=== PATIENT | female | born 1985 | race Caucasian/White ===

== ENCOUNTER 2020-07-31 09:36 | Emergency (ER) | payer BC, MEDICAID ==
[~2020-07-31 09:36] MED LIST: NO HOME MEDS
[2020-07-31 11:00] LABS: BASOPHILS % (AUTO) 0.2 % (0-1); EOSINOPHILS % (AUTO) 0.5 % (0-6); HEMATOCRIT 36.7 % (35.0-45.0); HEMOGLOBIN 12.2 g/dl (12.0-16.0); LYMPHOCYTES # (AUTO) 1.4 X10'3 (1.1-4.8); LYMPHOCYTES % (AUTO) 14.8 % (21-51); MEAN CORPUSCULAR HEMOGLOBIN 31.5 PG (27.0-31.0); MEAN CORPUSCULAR HGB CONC 33.3 g/dL (33.0-36.5); MEAN CORPUSCULAR VOLUME 94.6 FL (78-98); MEAN PLATELET VOLUME 9.1 FL (7.4-10.4); MONOCYTES # (AUTO) 0.7 X10'3 (0-0.9); MONOCYTES % (AUTO) 7.7 % (2-12); NEUTROPHILS # (AUTO) 7.5 X10'3 (1.8-7.7); NEUTROPHILS % (AUTO) 76.8 % (42-75); PLATELET COUNT 192 X10'3 (140-440); RED BLOOD COUNT 3.88 X10'6 (4.20-5.60); RED CELL DISTRIBUTION WIDTH 15.6 % (11.5-14.5); WHITE BLOOD COUNT 9.7 X10'3 (4.5-11.0)
[2020-07-31 11:17] LABS: ALANINE AMINOTRANSFERASE 33 U/L (12-78); ALBUMIN 3.6 G/DL (3.4-5.0); ALBUMIN/GLOBULIN RATIO 0.9 (1.1-1.5); ALKALINE PHOSPHATASE 26 IU/L (46-116); ANION GAP 10 (8-16); ASPARTATE AMINO TRANSFERASE 36 U/L (10-37); BILIRUBIN,TOTAL 0.3 MG/DL (0.1-1.0); BLOOD UREA NITROGEN 11 MG/DL (7-18); BUN/CREATININE RATIO 12.5 (6.6-38.0); CALCIUM 8.6 MG/DL (8.5-10.1); CHLORIDE 106 MMOL/L (99-107); CREATININE 0.88 MG/DL (0.40-0.90); GLUCOSE 79 MG/DL (70-104); POTASSIUM 4.1 MMOL/L (3.5-5.1); SODIUM 142 MMOL/L (135-145); TOTAL CARBON DIOXIDE 25.6 MMOL/L (24-32); TOTAL PROTEIN 7.4 G/DL (6.4-8.2); eGFR 72 ML/MIN
--- NOTE | 2020-07-31 13:15 | NUR ---
WAITING FOR US TECH. PT FEELING FULL BLADDER. INSTRUCT TO HOLD.
[2020-07-31 13:44] VITALS: BP 135/96
[2020-07-31 15:12] LABS: CLARITY,URINE CLEAR (Clear); COLOR,URINE STRAW (Yellow); GLUCOSE, URINE NEGATIVE (Neg); KETONES,URINE NEGATIVE (Neg); LEUKOCYTE ESTERASE ,URINE NEGATIVE (Neg); NITRITES, URINE NEGATIVE (Neg); OCCULT BLOOD,URINE MODERATE (Neg); PROTEIN,URINE NEGATIVE (Neg); UROBILINOGEN,URINE 0.2 E.U/dL (0.2-1.0)
[2020-07-31 15:30] LABS: UA COLLECTION TYPE VOIDED
[2020-07-31 15:32] LABS: MUCUS STRANDS NONE SEEN /LPF (Neg); SQUAMOUS EPITHELIAL CELL,UR MODERATE /LPF (FEW)
[2020-07-31 15:33] LABS: BACTERIA,URINE NONE SEEN /HPF (Neg); RBC,URINE 0-2 /HPF (0-2); WBC,URINE 0-4 /HPF (0-4)
[2020-07-31] MEDS ORDERED: IBUP-1986 PO (15:37)
== END 2020-07-31 15:45 | disposition home or self-care (01) ==
LOC: ER 09:36
DX: N93.8 Other specified abnormal uterine and vaginal bleeding (principal); D25.9 Leiomyoma of uterus, unspecified; F17.210 Nicotine dependence, cigarettes, uncomplicated
CPT/HCPCS: 36415; 76830; 76856; 80053; 81001; 85025; 99285

== ENCOUNTER 2021-12-19 07:53 | Day surgery (SDC) | payer MEDICAID ==
[2021-12-12 16:17] LABS: CLARITY,URINE CLEAR (Clear); COLOR,URINE YELLOW (Yellow); GLUCOSE, URINE NEGATIVE (Neg); KETONES,URINE NEGATIVE (Neg); LEUKOCYTE ESTERASE ,URINE NEGATIVE (Neg); NITRITES, URINE NEGATIVE (Neg); OCCULT BLOOD,URINE NEGATIVE (Neg); PH,URINE 6.5 (4.8-8.0); PROTEIN,URINE NEGATIVE (Neg); UROBILINOGEN,URINE 0.2 E.U/dL (0.2-1.0)
[2021-12-12 16:19] LABS: UA COLLECTION TYPE CLN CATCH MIDSTREAM
[2021-12-12 16:55] LABS: BASOPHILS % (AUTO) 0.5 % (0-1); EOSINOPHILS # (AUTO) 0.1 X10'3 (0-0.9); LYMPHOCYTES # (AUTO) 1.9 X10'3 (1.1-4.8); MEAN CORPUSCULAR HEMOGLOBIN 32.2 PG (27.0-31.0); MEAN CORPUSCULAR HGB CONC 34.2 g/dL (33.0-36.5); MONOCYTES # (AUTO) 0.8 X10'3 (0-0.9); MONOCYTES % (AUTO) 11.2 % (2-12); NEUTROPHILS # (AUTO) 4.1 X10'3 (1.8-7.7); NEUTROPHILS % (AUTO) 59.3 % (42-75); PRE OP HEMATOCRIT 37.2 % (35.0-45.0); PRE OP HEMOGLOBIN 12.8 g/dL (12.0-16.0); PRE OP PLATELET COUNT 177 X10'3 (140-440); RED BLOOD COUNT 3.96 X10'6 (4.20-5.60); RED CELL DISTRIBUTION WIDTH 15.5 % (11.5-14.5)
[2021-12-12 17:02] LABS: ALBUMIN 3.7 G/DL (3.4-5.0); ALKALINE PHOSPHATASE 32 IU/L (46-116); BLOOD UREA NITROGEN 9 MG/DL (7-18); BUN/CREATININE RATIO 11.1 (6.6-38.0); CALCIUM 8.7 MG/DL (8.5-10.1); CHLORIDE 106 MMOL/L (99-107); CREATININE 0.81 MG/DL (0.40-0.90); HCG SERUM QL NEGATIVE; PRE OP ALT 35 U/L (30-65); PRE OP ANION GAP 10 (8-16); PRE OP AST 29 U/L (10-37); PRE OP BILIRUB, TOTAL 0.3 MG/DL (0.0-1.0); PRE OP GLUCOSE 85 MG/DL (70-104); PRE OP POTASSIUM 3.7 MMOL/L (3.4-5.1); PRE OP SODIUM 144 MMOL/L (135-145); TOTAL CARBON DIOXIDE 27.8 MMOL/L (24-32); TOTAL PROTEIN 7.5 G/DL (6.4-8.2); eGFR 79 ML/MIN
[2021-12-19] VITALS (11 sets, daily range): BP systolic 104–133; BP diastolic 43–86
[~2021-12-19] VITALS: Ht 160 cm; Wt 53.2 kg
[~2021-12-19 07:53] MED LIST changes: +B1 VITAMIN PO; -NO HOME MEDS; +VALA500T41 PO; +ceFOXitin 2GM-NS 100mL ADDvant 100 ML IV ONE; +famotidine 20mg tablet PO ONE
[2021-12-19] MEDS ORDERED: epiNEPHrine 1 mg/ml inj ONE (09:22)
[2021-12-19] MEDS ORDERED: neomy sulf/polymyxin B sulf. GU irrigation 1ml amp IR ONE (09:23)
[2021-12-19] MEDS ORDERED: clindamycin phosphate 150mg/ml inj. ONE (09:23)
[2021-12-19] MEDS ORDERED: BUPIVAcaine 0.5% inj/PF 60 ML ONE (09:23)
[2021-12-19] MEDS ORDERED: vasoPRESSIN 20 units/ml inj. ONE (09:24)
[2021-12-19] MEDS ORDERED: clindamycin phosphate 40gm vag cream ONE (09:25)
[2021-12-19] MEDS ORDERED: fentaNYL /PF 50mcg/ml 5ml ampule ONE (10:32)
[2021-12-19] MEDS ORDERED: midazolam 1 mg/ML 2ml injection ONE (10:32)
[2021-12-19] MEDS ORDERED: LIDOcaine 2% (20mg/ml) 5ml vial ONE (11:05)
[2021-12-19] MEDS ORDERED: dexamethasone sod phosphate 4mg/ml inj. ONE (11:05)
[2021-12-19] MEDS ORDERED: propofol inj 20 ML IV ONE (11:05)
[2021-12-19] MEDS ORDERED: neostigmine methylsulfate 1 MG/ML 10ml vial ONE ×2 (11:05→12:18)
[2021-12-19] MEDS ORDERED: rocuronium 10mg/ml inj IV ONE (11:05)
[2021-12-19] MEDS ORDERED: ondansetron/PF 4mg/2ml inj ONE (11:05)
[2021-12-19] MEDS ORDERED: meperidine/PF 25mg/ml syringe IV PRN ×3 (11:50)
[2021-12-19] MEDS ORDERED: labetalol 20mg/4ml (5mg/ml) syringe IV PRN (11:50)
[2021-12-19] MEDS ORDERED: ondansetron/PF 4mg/2ml inj IV PRN ×2 (11:50→12:15)
[2021-12-19] MEDS ORDERED: ringers solution, lacted 1,000 ML IV SCH (11:50)
[2021-12-19] MEDS ORDERED: morphine 4 MG/ML inj SYRINge IV PRN (11:50)
[2021-12-19] MEDS ORDERED: proCHLORperazine 10 MG/2 ml inj IV PRN (11:50)
[2021-12-19] MEDS ORDERED: ketorolac trometh. 30mg/ml inj. IV ONE (11:50)
[2021-12-19] MEDS ORDERED: hydrALAZINE 20mg/ml inj. IV PRN (11:50)
[2021-12-19] MEDS ORDERED: morphine 2 MG/ML inj. syringe IV PRN (11:50)
[2021-12-19] MEDS ORDERED: acetaminophen 1,000mg/100ml IV 100 ML IV PRN (11:50)
[2021-12-19] MEDS ORDERED: LORazepam 2 mg/ml vial IV PRN (12:15)
[2021-12-19] MEDS: ringers solution, lacted 1,000 ML IV SCH ×2 (12:15→15:02)
[2021-12-19] MEDS ORDERED: diphenhydrAMINE 50 mg/ml inj IV PRN (12:15)
[2021-12-19] MEDS ORDERED: temazepam 15mg capsule PO PRN (12:15)
[2021-12-19] MEDS ORDERED: HYDROcodone/acetaminophen 10/325mg tab PO PRN (12:15)
[2021-12-19] MEDS ORDERED: magnesium hydroxide 30ml (MOM) UD suspension PO PRN (12:15)
[2021-12-19] MEDS ORDERED: normal saline 500ml IV soln 500 ML IV PRN (12:15)
[2021-12-19] MEDS ORDERED: metoclopramide 5 mg/ml inj IV PRN (12:15)
[2021-12-19] MEDS ORDERED: glycopyrrolate 0.2mg/ml inj ONE (12:18)
[2021-12-19] MEDS: HYDROcodone/acetaminophen 10/325mg tab PO PRN ×2 (12:50→19:40)
--- NOTE | 2021-12-19 14:05 | NUR ---
PATIENT DISCHARGED FROM PACU IN STABLE CONDITION AFTER REPORT GIVEN TO RN TAKING OVER PATIENTS CARE. PATIENT TRANSPORTED TO ROOM 360B VIA BED WITH COMPOSITE BOND WORKER X2. Addendum: 12/19/21 at 1421 by Radha Thornton RN Amended: Links added.
[2021-12-19] MEDS ORDERED: Estradiol 0.025mg/day patch (1 per week) TD SCH (14:40)
--- NOTE | 2021-12-19 16:20 | NUR ---
ARRIVED TO FLOOR. ALERT AND ORINETED, VISITOR AT BEDSIDE. VS STABLE POST-OP VS STARTED IV FLUIDS RUNNING ORDERED.
[2021-12-19] MEDS: ketorolac trometh. 30mg/ml inj. IV PRN ×2 (16:43→22:51)
--- NOTE | 2021-12-19 18:49 | NUR ---
Patient in room [facility]. I have received report from [facility] Crisostomo and had the opportunity to ask questions and assume patient care.
[2021-12-19] MEDS: docusate sod 100mg capsule PO SCH (19:39)
[2021-12-20 00:02] VITALS: BP 140/68
[2021-12-20] MEDS: ringers solution, lacted 1,000 ML IV SCH ×2 (04:15→12:15)
[2021-12-20] MEDS ORDERED: ringers solution, lacted 1,000 ML IV SCH (05:00)
[2021-12-20 06:20] LABS: BASOPHILS % (AUTO) 0.1 % (0-1); EOSINOPHILS % (AUTO) 0.1 % (0-6); HEMATOCRIT 32.7 % (35.0-45.0); LYMPHOCYTES # (AUTO) 1.1 X10'3 (1.1-4.8); LYMPHOCYTES % (AUTO) 8.8 % (21-51); MEAN CORPUSCULAR HEMOGLOBIN 31.7 PG (27.0-31.0); MEAN CORPUSCULAR HGB CONC 33.7 g/dL (33.0-36.5); MEAN CORPUSCULAR VOLUME 94.1 FL (78-98); MEAN PLATELET VOLUME 9.6 FL (7.4-10.4); MONOCYTES % (AUTO) 8.1 % (2-12); NEUTROPHILS # (AUTO) 10.3 X10'3 (1.8-7.7); NEUTROPHILS % (AUTO) 82.9 % (42-75); PLATELET COUNT 155 X10'3 (140-440); RED BLOOD COUNT 3.48 X10'6 (4.20-5.60); RED CELL DISTRIBUTION WIDTH 15.4 % (11.5-14.5); WHITE BLOOD COUNT 12.4 X10'3 (4.5-11.0)
[2021-12-20 06:40] LABS: ALBUMIN 2.9 G/DL (3.4-5.0); ANION GAP 10 (8-16); BLOOD UREA NITROGEN 9 MG/DL (7-18); CALCIUM 8.4 MG/DL (8.5-10.1); CHLORIDE 108 MMOL/L (99-107); CREATININE 0.69 MG/DL (0.40-0.90); GLUCOSE 105 MG/DL (70-104); POTASSIUM 3.9 MMOL/L (3.5-5.1); SODIUM 144 MMOL/L (135-145); TOTAL CARBON DIOXIDE 25.6 MMOL/L (24-32); eGFR > 90 ML/MIN
--- NOTE | 2021-12-20 06:41 | NUR ---
Patient in room [facility]. I have received report from [facility] Ramos and had the opportunity to ask questions and assume patient care.
--- NOTE | 2021-12-20 06:50 | NUR ---
Problems reprioritized. Patient report given, questions answered & plan of care reviewed with [facility] Driscoll.
--- NOTE | 2021-12-20 06:50 | NUR ---
nur cath DC'd at 0645. pt tolerated well. instructed to notify RN of first void after nur removal.
[2021-12-20 07:00] VITALS: BP 105/74
[2021-12-20 08:00] VITALS: BP 105/74
[2021-12-20] MEDS ORDERED: enoxaparin 40mg/0.4ml syringe SQ SCH (08:00)
[2021-12-20] MEDS: HYDROcodone/acetaminophen 10/325mg tab PO PRN ×2 (08:14→12:50)
[2021-12-20] MEDS: docusate sod 100mg capsule PO SCH (08:14)
[2021-12-20] MEDS: ketorolac trometh. 30mg/ml inj. IV PRN (08:15)
[2021-12-20 11:00] VITALS: BP 113/72
== END 2021-12-20 13:09 | disposition home or self-care (01) ==
LOC: PAS 07:53 → SUR 3N 12:13 → PAS 12-20 13:09
PROVIDERS: ATTEND Obstetrics & Gynecology Obstetrics
DX: N92.1 Excessive and frequent menstruation with irregular cycle (principal); D25.1 Intramural leiomyoma of uterus; D25.0 Submucous leiomyoma of uterus; D25.2 Subserosal leiomyoma of uterus; D64.9 Anemia, unspecified; F41.9 Anxiety disorder, unspecified; F17.210 Nicotine dependence, cigarettes, uncomplicated; F32.A Depression, unspecified; Z98.890 Other specified postprocedural states; Z72.89 Other problems related to lifestyle; Z87.440 Personal history of urinary (tract) infections; Z79.899 Other long term (current) drug therapy; Z20.822 Contact with and (suspected) exposure to COVID-19
CPT/HCPCS: 36415; 58552; 71046; 80048; 80053; 81003; 82948; 84703; 85025; 86885; 86900; 86901; 93005; J0131; J0171; J0694; J1100; J1650; J1885; J2175; J2250; J2405; J2704; J2710; J3010; J3490; J7030; J7120; S0020; U0003; U0005; Z7506; Z7508; Z7512; A4314; A4618; A7000; G0378